=== PATIENT | female | born 1990 | race Caucasian/White ===

== ENCOUNTER 2019-04-09 12:44 | Emergency (ER) | payer SELFPAY ==
[2019-04-09 12:48] VITALS: BP 124/89
[2019-04-09] MEDS ORDERED: LIDOCAINE 5% (700 MG) TRANSDERMAL ADH..PATCH TP ONE (13:01)
[2019-04-09] MEDS ORDERED: KETOROLAC TROMETHAMINE 60 MG/2 ML SDV IM ONE (13:01)
[2019-04-09] MEDS ORDERED: DIAZEPAM 5 MG TABLET PO ONE (13:01)
--- NOTE | 2019-04-09 13:07 | ER Document Report ---
HPI - HPI Time Seen by Provider: 04/09/19 12:52 Pain Level: 3 Notes: Patient is a 28-year-old female who presents complaining of back pain that started yesterday and feels like spasming in her left low back. Patient states that bending and twisting make the pain worse. 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 Patient states that the pain does not radiate. She has been able to eat and drink without difficulty. She is urinating normally and having normal bowel movements. Patient states that she had a flareup like this in the past when she strained her back. Denies any history of diabetes, spinal abscess, or IV drug abuse. No recent illness. Denies any headache, fever, neck pain, URI, sore throat, chest pain, palpitations, syncope, cough, shortness of breath, wheeze, dyspnea, abdominal pain, nausea/vomiting/diarrhea, urinary retention, dysuria, hematuria, loss of control of bowel or bladder, numbness/tingling, saddle anesthesia, muscle paralysis/weakness, or rash. - ROS Systems Reviewed and Negative: Yes All other systems reviewed and negative - REPRODUCTIVE Reproductive: DENIES: : Past Medical History - Social History Smoking Status: Current Every Day Smoker Frequency of alcohol use: None Drug Abuse: None Family History: Reviewed & Not Pertinent Patient has suicidal ideation: No Patient has homicidal ideation: No Renal/ Medical History: Denies: Hx Peritoneal Dialysis - Immunizations Immunizations up to date: Yes Hx Diphtheria, Pertussis, Tetanus Vaccination: Yes Vertical Provider Document - CONSTITUTIONAL Agree With Documented VS: Yes Notes: PHYSICAL EXAMINATION: GENERAL: Well-appearing, well-nourished and in no acute distress. LUNGS: Breath sounds clear to auscultation bilaterally and equal. No wheezes r ales or rhonchi. HEART: Regular rate and rhythm without murmurs, rubs, gallops. ABDOMEN: Soft, nontender, nondistended abdomen. No guarding, no rebound. Normal bowel sounds present. No CVA tenderness bilaterally. No pulsatile mass Musculoskeletal: LE's b/l: FROM to passive/active. Strength 5+/5. No deficits noted. No bony tenderness of extremities. Back: LROM to passive/active due to her pain/spasming. Strength 5+/5. No vertebral point tenderness, stepoffs, or deformities. No other bony tenderness, erythema, swelling, or ecchymosis. SLR negative b/l. + reproducible tenderness to the Left L-paraspinal mm with muscle spasming and trigger points noted. No SI jt tenderness. No foot drop Extremities: No cyanosis, clubbing, or edema b/l. Peripheral pulses 2+. Capillary refill less than 2 seconds. NEUROLOGICAL: Normal speech, slower gait and does not twist due to inc. in symptoms.. Normal sensory, motor exams. Reflexes 2+ b/l. PSYCH: Normal mood, normal affect. SKIN: Warm, Dry, normal turgor, no rashes or lesions noted. - INFECTION CONTROL TRAVEL OUTSIDE OF THE [place] IN LAST 30 DAYS: No Course - Re-evaluation Re-evalutation: 04/09/19 13:04 Patient is an afebrile, well-hydrated, 28-year-old female who presents to the ED with low back pain with spasming and trigger points noted (reproducible symptoms by palp/ROM). Vitals are acceptable. PE is otherwise unremarkable for any focal neurological deficits. Patient was given Toradol, Lidoderm patch, and 1 p.o. dose of Valium 5 mg. She has no significant tachycardia, tachypnea, or hypoxia. She is nontoxic-appearing and is tolerating p.o. without difficulties. There are no signs of infection. No other red flag symptoms noted. No other labs or imaging warranted at this time based on H&P. Low suspicion for any meningitis, fracture, expanding/ruptured AAA, cauda equina syndrome, epidural mass lesion/abscess, herniated disc causing severe spinal stenosis, or other systemic infection at this time. Patient is aware that this condition can change from initial presentation and that she needs to monitor symptoms closely for any acute changes. I will send her home with a prescription for robaxin and naproxen. Conservative measures otherwise for symptoms. Recheck with your PCM in 3-5 days. Consider consult with orthopedic/physical therapy. Return to the ED with any worsening/concerning symptoms otherwise as reviewed discharge. Patient is in agreement. - Vital Signs Vital signs: Temp Pulse Resp BP Pulse Ox 97.7 F 75 18 124/89 H 100 04/09/19 12:48 04/09/19 12:48 04/09/19 12:48 04/09/19 12:48 04/09/19 12:48 Discharge - Discharge Clinical Impression: Low back pain Qualifiers: Chronicity: acute Back pain laterality: left Sciatica presence: without sciatica Qualified Code(s): M54.5 - Low back pain Condition: Stable Disposition: HOME, SELF-CARE Instructions: Low Back Pain ([facility]), Muscle Strain ([facility]), Stretching Exercises for the Back ([facility]) Additional Instructions: Rest, Ice Tylenol/ibuprofen as needed Light stretches daily Strength exercises as able Moist heat and massage may help F/u with your PCP in 3-5 days for a recheck Consider consult(s) with Orthopedics/physical therapy for ongoing/worsening symptoms Return to the ED with any worsening symptoms and/or development of fever, headache, chest pain, palpitations, syncope, shortness of breath, trouble breathing, abdominal pain, n/v/d, blood in stool/urine, loss of control of bowel/bladder, urinary retention, muscle weakness/paralysis, saddle anesthesia, numbness/tingling, or other worsening symptoms that are concerning to you. Prescriptions: Lidocaine [Lidoderm 5% (700 mg) Transdermal Patch] 1 patch TP DAILY #10 adh..patch Methocarbamol [Robaxin] 500 mg PO TID PRN #12 tablet PRN Reason: Naproxen 500 mg PO BID #14 tablet Forms: Elevated Blood Pressure, Smoking Cessation Education, Return to Work Referrals: [facility] [Provider Group] - Follow up as needed
== END 2019-04-09 13:35 | disposition home or self-care (01) ==
LOC: ER 12:44
DX: M54.5 Low back pain (principal); X50.1XXA Overexertion from prolonged static or awkward postures, initial encounter; F17.200 Nicotine dependence, unspecified, uncomplicated
CPT/HCPCS: 99283; 96372; J1885

== ENCOUNTER 2019-06-06 20:01 | Emergency (ER) | payer SELFPAY ==
[2019-06-06 20:19] VITALS: BP 128/63
[2019-06-06] MEDS ORDERED: DIPHENHYDRAMINE HCL 25 MG CAPSULE PO ONE (20:38)
[2019-06-06] MEDS ORDERED: PREDNISONE 20 MG TABLET PO ONE (20:38)
[2019-06-06] MEDS ORDERED: FAMOTIDINE 20 MG TABLET PO ONE (20:38)
--- NOTE | 2019-06-06 20:44 | ER Document Report ---
ED Medical Screen (RME) - General Chief Complaint: Allergic Reaction Stated Complaint: POSSIBLE ALLERGIC REACTION-HIVES Time Seen by Provider: 06/06/19 20:30 Primary Care Provider: RADHA SQUIRES MD [Primary Care Provider] - Follow up as needed TRAVEL OUTSIDE OF THE [place] IN LAST 30 DAYS: No - HPI Notes: 06/06/19 20:39 Patient is a 28-year-old female presenting with a chief complaint of sudden onset allergic reaction. Patient states she is uncertain what she came into contact with, but states she was at work when she had onset of symptoms. Patient denies difficulty breathing but does state she feels like she has a "lump" in her throat. Patient is also complaining of pleuritic, splotchy rash on her face, upper extremities and back. Patient denies taking any medication prior to arrival. Patient states her friend drove her to the emergency department. I have treated and performed a rapid initial assessment of this patient. [place] to the ED assessment and evaluation of the patient, analysis of the test results, and completion of medical decision making process will be conducted by additional ED providers. - Related Data Allergies/Adverse Reactions: dog saliva Allergy (Uncoded 06/06/19 20:35) Past Medical History - Social History Chew tobacco use (# tins/day): No Frequency of alcohol use: Occasional Drug Abuse: None Renal/ Medical History: Denies: Hx Peritoneal Dialysis - Immunizations Immunizations up to date: Yes Hx Diphtheria, Pertussis, Tetanus Vaccination: Yes Physical Exam - Vital signs Vitals: Temp Pulse Resp BP Pulse Ox 98.4 F 83 18 128/63 H 100 06/06/19 20:18 06/06/19 20:18 06/06/19 20:18 06/06/19 20:18 06/06/19 20:18 - General General appearance: Alert, Anxious In distress: None - HEENT Notes: No stridor - Respiratory Respiratory status: No respiratory distress - Skin Skin Temperature: Warm Skin Moisture: Dry Skin Color: Other - Patient has multiple areas of blanching erythematous rash on her face and upper extremities. Patient also has welts on her left medial upper extremity. Character of irregularity: Urticarial. negative: Symmetric Course - Vital Signs Vital signs: Temp Pulse Resp BP Pulse Ox 98.4 F 83 18 128/63 H 100 06/06/19 20:18 06/06/19 20:18 06/06/19 20:18 06/06/19 20:18 06/06/19 20:18 Doctor's Discharge - Discharge Referrals: RADHA SQUIRES MD [Primary Care Provider] - Follow up as needed
== END 2019-06-06 22:58 | disposition left against medical advice (07) ==
LOC: ER 20:01
DX: T78.40XA Allergy, unspecified, initial encounter (principal); X58.XXXA Exposure to other specified factors, initial encounter
CPT/HCPCS: J7512